=== PATIENT | female | born 1930 | race Caucasian/White ===

== ENCOUNTER 2020-03-17 14:23 | Inpatient (IN) | payer OTHER ==
[~2020-03-17] VITALS: Ht 157.5 cm; Wt 57.2 kg
[~2020-03-17 14:23] MED LIST: ACETAMINOPHEN650 M2 PO; AMBIEN5 MG PO; AMLODIPINE BESYL5 MG PO; ARICEPT5 MG PO; ASPIR 8181 MG PO; ASPIRIN EC81 MG PO; ATORVASTATIN CA20 MG PO; BENTYL 10MG CAP10 MG PO; CARVEDILOL3.125 MG PO; CLOPIDOGREL75 MG PO; COLCHICINE0.6 M1 PO; COREG6.25 MG PO; COZAAR100 MG PO; DILTIAZEM 24HR240 M1 PO; DITROPAN XL5 MG PO; ELIQUIS 5 MG TAB5 MG PO; ELIQUIS2.5 MG PO; ESTRACE0.5 MG PO; FERROUS GLUCON324 M1 PO; FERROUS SULFAT325 MG PO; HYDRALAZINE HCL25 MG PO; HYZAAR 100-251 EACH PO; IMDUR ER TAB 3030 MG PO; K-DUR TAB 20 M20 MEQ PO; LASIX 40 MG TAB40 MG PO; LASIX20 MG PO; LASIX40 MG PO; LEVOFLOXACIN500 MG PO; LEVOFLOXACIN750 MG PO; LEVSIN TAB 00.125 MG SL; LEVSIN-SL0.125 MG SL; LIPITOR40 MG PO; LOSARTAN-HCTZ1 EAC2 PO; MAG-OX 400 TAB400 MG PO; MEGACE 400400 MG/10 PO; METOPROLOL TART25 MG PO; MOBIC15 MG PO; NORCO 10-325 T1 EACH PO; NORVASC10 MG PO; NORVASC5 MG PO; POTASSIUM CHLO20 ME2 PO; PRILOSEC OTC20 MG PO; RAMELTEON8 MG PO; ROPINIROLE HCL0.5 MG PO; SODIUM BICARBO650 M1 PO; TOPROL XL25 MG PO; TRANDATE 100 M100 MG PO; VITAMIN D3-CAL1 EACH PO; VOLTAREN100 GM TP; ZOFRAN 4 MG TAB4 MG PO
[2020-03-17 16:33] LABS: HEMOGLOBIN 10.7 gm/dl (12.3-15.3); RED BLOOD COUNT 3.82 M/UL (4.00-5.10); WHITE BLOOD COUNT 6.4 K/UL (4.5-11.0)
[2020-03-17] MEDS ORDERED: COZAAR 25MG TAB25 MG PO (20:30)
[2020-03-18 04:00] LABS: HEMOGLOBIN 10.6 gm/dl (12.3-15.3); RED BLOOD COUNT 3.84 M/UL (4.00-5.10)
[2020-03-18 04:02] LABS: WHITE BLOOD COUNT 3.5 K/UL (4.5-11.0)
--- NOTE | 2020-03-18 18:16 | NUR ---
SPOKE WITH PT'S DAUGHTER AND SON - RAJAT COREARAN - RE: CONVA. PLASMA. THEY AGREE TO TRANSFUSION AND VERBAL CONSENT OBTAINED.
--- NOTE | 2020-03-19 18:49 | NUR ---
PT CONDITION DETIORATING. MD AWARE. ATTEMPTED TO CALL SON - RAJAT - MULTIPLE TIMES WITHOUT SUCCESS. PT'S DAUGHTER - DULCE MARIA - CALLED AND MADE AWARE OF CONDITION. NEW NUMBER NOTED FOR SON. SON NOTIFIED AND UPDATED NUMBER GIVEN TO MD. WILL TRANSFER TO ICU WHEN BED AVAILABLE.
[2020-03-20 06:27] LABS: HEMOGLOBIN 10.6 gm/dl (12.3-15.3); RED BLOOD COUNT 3.71 M/UL (4.00-5.10)
[2020-03-20 22:41] LABS: HEMOGLOBIN 10.2 gm/dl (12.3-15.3); RED BLOOD COUNT 3.56 M/UL (4.00-5.10); WHITE BLOOD COUNT 12.5 K/UL (4.5-11.0)
[2020-03-21 03:34] LABS: HEMOGLOBIN 10.1 gm/dl (12.3-15.3); RED BLOOD COUNT 3.56 M/UL (4.00-5.10); WHITE BLOOD COUNT 12.3 K/UL (4.5-11.0)
--- NOTE | 2020-03-21 05:10 | NUR ---
FAMILY CALLED AND MADE PATIENT DNR/DNI. COMFORT CARE MEASURES ONLY. DR. TORRES MADE AWARE. REMOVED TELEMETRY AND PULSE OX MONITORING FROM THE PATIENT AND REMOVED HER IV IN HER RIGHT FOREARM. I CONNECTED VIA [employer] WITH SON RAJAT SO HE COULD SEE HIS MOTHER AND SAY HIS GOODBYES.
[2020-03-22 06:13] LABS: HEMOGLOBIN 10.6 gm/dl (12.3-15.3); RED BLOOD COUNT 3.71 M/UL (4.00-5.10); WHITE BLOOD COUNT 11.9 K/UL (4.5-11.0)
== END 2020-03-25 05:52 | disposition expired | DRG 871 ==
LOC: ER1 14:23 → CDU 18:41 → MED SURG 4 18:41
PROVIDERS: Internal Medicine Nephrology; Preventive Medicine Occupational Medicine; ADMIT Internal Medicine
PROC: 8E0ZXY6 Isolation (ICD-10-PCS; principal; 2020-03-17)
PROC: XW13325 Transfusion of Convalescent Plasma (Nonautologous) into Peripheral Vein, Percutaneous Approach, New Technology Group 5 (ICD-10-PCS; 2020-03-17)
DX: A41.9 Sepsis, unspecified organism (principal); U07.1 COVID-19; J12.82 Pneumonia due to coronavirus disease 2019; I21.A1 Myocardial infarction type 2; K72.00 Acute and subacute hepatic failure without coma; J96.01 Acute respiratory failure with hypoxia; N17.0 Acute kidney failure with tubular necrosis; E87.2 Acidosis; G93.40 Encephalopathy, unspecified; N39.0 Urinary tract infection, site not specified; R65.20 Severe sepsis without septic shock; I48.91 Unspecified atrial fibrillation; I12.9 Hypertensive chronic kidney disease with stage 1 through stage 4 chronic kidney disease, or unspecified chronic kidney disease; N18.9 Chronic kidney disease, unspecified; I25.10 Atherosclerotic heart disease of native coronary artery without angina pectoris; H91.90 Unspecified hearing loss, unspecified ear; I49.5 Sick sinus syndrome; Z51.5 Encounter for palliative care; Z66 Do not resuscitate; E78.5 Hyperlipidemia, unspecified; E88.09 Other disorders of plasma-protein metabolism, not elsewhere classified; D50.9 Iron deficiency anemia, unspecified; G25.81 Restless legs syndrome; F03.90 Unspecified dementia, unspecified severity, without behavioral disturbance, psychotic disturbance, mood disturbance, and anxiety; M19.90 Unspecified osteoarthritis, unspecified site; G89.29 Other chronic pain; K58.9 Irritable bowel syndrome, unspecified; N32.81 Overactive bladder; Z95.1 Presence of aortocoronary bypass graft; Z95.0 Presence of cardiac pacemaker; Z98.61 Coronary angioplasty status; Z90.49 Acquired absence of other specified parts of digestive tract; Z90.710 Acquired absence of both cervix and uterus; Z82.49 Family history of ischemic heart disease and other diseases of the circulatory system; Z88.5 Allergy status to narcotic agent; Z88.0 Allergy status to penicillin; Z79.899 Other long term (current) drug therapy; Z79.82 Long term (current) use of aspirin; Z79.01 Long term (current) use of anticoagulants
CPT/HCPCS: 36415; 36600; 70450; 71045; 80048; 80053; 80202; 80307; 81001; 82140; 82550; 82553; 82803; 82962; 83036; 83605; 83690; 83735; 83874; 83880; 84484; 85025; 85027; 85652; 86140; 86850; 86900; 86901; 86927; 87040; 87086; 93005; 94664; 94760; 96365; 96366; 96367; 96375; 96376; 97166; 99285; J0456; J0696; J1100; J2185; J2270; J2405; J3370; J7030; J7050; J7070; U0002